=== PATIENT | male | born 1995 | race Caucasian/White ===

== ENCOUNTER 2018-02-13 17:15 | Inpatient (IN) | payer BC, OTHER ==
[~2018-02-13] VITALS: Ht 195.6 cm; Wt 88.5 kg
[2018-02-13 21:00] VITALS: BP 138/87
[2018-02-13] MEDS ORDERED: THIAMINE HCL 200 MG/2 ML VIAL IM ONE (21:00)
[2018-02-13] MEDS ORDERED: ACETAMINOPHEN 325 MG TABLET PO PRN (21:00)
[2018-02-13] MEDS ORDERED: ONDANSETRON 4 MG/2 ML VIAL IM PRN (21:00)
[2018-02-13] MEDS ORDERED: LORAZEPAM 2 MG/1 ML VIAL IM PRN (21:00)
[2018-02-13] MEDS ORDERED: LOPERAMIDE HCL 2 MG CAPSULE PO PRN ×2 (21:00)
[2018-02-13] MEDS ORDERED: CLONIDINE HCL 0.1 MG TABLET PO PRN (21:00)
[2018-02-13] MEDS ORDERED: LORAZEPAM 1 MG TABLET PO PRN ×2 (21:00)
[2018-02-13] MEDS ORDERED: ONDANSETRON ODT 4 MG TAB.RAPDIS SL PRN (21:00)
[2018-02-13] MEDS ORDERED: MAGNESIUM HYDROXIDE 30 ML LIQUID UDC PO PRN (21:00)
[2018-02-13] MEDS ORDERED: DICYCLOMINE HCL 20 MG TABLET PO PRN (21:00)
[2018-02-13] MEDS ORDERED: MIRALAX 17 GM POWD.PACK PO PRN (21:00)
--- NOTE | 2018-02-13 21:00 | NUR ---
Pre-admission Assessment Patient is a 22-year old, male, seen at intake, AAOx4 and with no SOB noted. Patient also noted to be tense. Patient verbalized that he is still intoxicated from Alcohol but is starting to feel "some symptoms" of withdrawal from Opiates, namely tensed muscle with pain level=4/10, chills, goosebumps, cravings for the substance and sweating . Discussed with patient admission policies of the unit. Patient is coherent and able to respond to questions appropriately. Pt is ambulatory with steady gait. Patient reported he has been drinking Alcohol (Vodka and Whiskey) and using Opiates (Heroin, [place]). Vital signs taken and as follows: YD=299/87, P=85, O2 sat on RA=98%, RR=20, T=98.4. Pt verbalized instructions and teachings regarding disposal of narcotic and other controlled home meds, unit protocols such as taking of vital signs Q4H and handling and disposal of contraband.
[2018-02-13 21:30] VITALS: BP 133/89
[2018-02-13 21:34] LABS: BASOPHILS # (AUTO) 0.1 K/uL (0.0-8.0); BASOPHILS % (AUTO) 0.6 % (0.0-2.0); EOSINOPHILS # (AUTO) 0.1 K/uL (0.0-0.7); EOSINOPHILS % (AUTO) 0.9 % (0.0-7.0); HEMATOCRIT 44.2 % (36.7-47.1); HEMOGLOBIN 14.9 g/dL (12.5-16.3); LYMPHOCYTES % (AUTO) 49.3 % (20.5-51.5); MEAN CORPUSCULAR HEMOGLOBIN 32.3 uug (23.8-33.4); MEAN CORPUSCULAR HGB CONC 34 g/dL (32.5-36.3); MEAN CORPUSCULAR VOLUME 95.8 fL (73.0-96.2); MONOCYTES # (AUTO) 1.6 K/uL (2.0-10.0); MONOCYTES % (AUTO) 9.6 % (0.0-11.0); NEUTROPHILS # (AUTO) 6.4 K/uL (1.8-8.9); NEUTROPHILS % (AUTO) 39.6 % (38.5-71.5); PLATELET COUNT (AUTO) 308 K/uL (152-348); RED BLOOD CELL COUNT(AUTO) 4.61 MIL/uL (4.06-5.63); WHITE BLOOD COUNT (AUTO) 16.2 K/uL (3.6-10.2)
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
[2018-02-13] MEDS: METHOCARBAMOL 750 MG TABLET PO PRN (21:58)
[2018-02-13] MEDS: BUPRENORPHINE HCL 2 MG TAB.SUBL SL PRN (21:58)
--- NOTE | 2018-02-13 21:58 | NUR ---
RN note PRN Subutex and PRN Robaxin Patient with goosebumps, increasing anxiety and chills. COWS=13. Also, patient c/o generalized muscle pain=6/10. Administered Subutex 4 mg SL and Robaxin 750 mg PO PRN. Will reassess.
[2018-02-13 22:11] LABS: *AMPHETAMINE, URINE NEGATIVE (NEGATIVE); *BARBITURATE, URINE NEGATIVE (NEGATIVE); *CANNABINOID, URINE POSITIVE (NEGATIVE); *COCCAINE, URINE NEGATIVE (NEGATIVE); *OPIATE, URINE POSITIVE (NEGATIVE); *PHENCYCLIDINE SCREEN,URINE NEGATIVE (NEGATIVE)
[2018-02-13 22:30] LABS: BILIRUBIN,TOTAL 0.4 mg/dL (0.2-1.0); CREATININE 0.8 mg/dL (0.6-1.3); MAGNESIUM 1.9 mg/dL (1.8-2.4); POTASSIUM 3.5 mmol/L (3.5-5.1); TOTAL PROTEIN, SERUM 7.6 g/dL (6.4-8.2)
[2018-02-13 22:52] LABS: THYROID STIMULATING HORMONE 1.758 mIU/mL (0.358-3.740)
--- NOTE | 2018-02-13 23:00 | NUR ---
RN note reassess Patient verbalized that pain level decreased to 3/10. Patient is now less anxious, more calm, less jittery and with no goosebumps. COWS=8. Will continue to monitor.
[2018-02-14] VITALS (7 sets, daily range): BP systolic 130–162; BP diastolic 68–85
[2018-02-14] MEDS ORDERED: GABA600T2 PO (00:16)
[2018-02-14] MEDS ORDERED: GABAPENTIN 300 MG CAPSULE PO ONE (01:00)
[2018-02-14] MEDS ORDERED: MELO-107 PO (03:03)
[2018-02-14] MEDS: HYDROXYZINE PAMOATE 25 MG CAPSULE PO PRN (04:24)
--- NOTE | 2018-02-14 04:27 | NUR ---
RN note PRN Ativan and PRN Vistaril Pt noted to be anxious, frequently shifts movement on bed, fidgety. Patient verbalized that he is "feeling symptoms from alcohol withdrawal." CIWA=12. Administered Ativan 1 mg PO PRN as ordered. Will reassess. Also, administered Vistaril 25 mg PO PRN as ordered. Will reassess.
--- NOTE | 2018-02-14 05:30 | NUR ---
RN note reassess Patient appears more calm and verbalized feeling less anxious. CIWA=10. Will continue to monitor.
--- NOTE | 2018-02-14 07:20 | NUR ---
Start of shift Pt is 22 y/o male admitted for medically supervised withdrawal of ETOH and Opiates. Pr reports using marijuana too. Last COWS 9, CIWA 10 at 0600. Pt A&O x4. Pt reports anxiety, agitation, nausea, sweats, chills, fine tremors, body shakes, insomnia, body aches, intermittent chest pain #3/10 and poor appetite. Pt did not sleep last night. Pt presents with flat affect and depressed mood. Pt is currently on PRN Subutex and Ativan for withdrawal symptoms. Pt encouraged to participate in group activities, socialize with others and identify positive coping skills to maintain sobriety. Safety measures in place; Bed in lowest position. Side rails up x2. Call light functioning and within reach. All needs attended and met. Will continue to monitor for withdrawal symptoms.
--- NOTE | 2018-02-14 07:26 | NUR ---
End of Shift Patient continues to be hyperverbal and appears flushed. Patient was not able to sleep the whole shift. Per patient, "I just feel hyped up but I feel more calm now though and I might sleep soon." Patient noted to be melancholic and with tremors observed. Patient was educated with relaxation techniques. Fall, universal, seizure and safety prec in place. Call light within reach. Latest COWS=9, CIWA=10. Endorsed to AM shift nurse for continuity of care.
--- NOTE | 2018-02-14 08:10 | NUR ---
COWS 15/CIWA 20- Pt presents with nausea, gross tremors, sweats and sweat on brow, chills, anxiety, irritable, insomnia, intermittent chest pain, generalized body aches, and fatigue. Will administer PRN medications as ordered
[2018-02-14] MEDS: FOLIC ACID 1 MG TABLET PO SCH (08:17)
[2018-02-14] MEDS: THIAMINE HCL 100 MG TABLET PO SCH (08:17)
[2018-02-14] MEDS: IBUPROFEN 600 MG TABLET PO PRN (08:17)
[2018-02-14] MEDS: MULTIVITAMINS,THERAPEUTIC TABLET PO SCH (08:17)
[2018-02-14] MEDS: METHOCARBAMOL 750 MG TABLET PO PRN ×2 (08:17→20:37)
[2018-02-14] MEDS: BUPRENORPHINE HCL 2 MG TAB.SUBL SL PRN (08:18)
--- NOTE | 2018-02-14 08:25 | NUR ---
PRN medications: Subutex 4 mg SL for COWS 15 Ativan 2 mg po for CIWA 20 Motrin 600 mg PO for pain in chest, back, and body #3/10 Robaxin 750 mg por for generalized body aches Zofran 4 ml SL for nausea
--- NOTE | 2018-02-14 08:27 | NUR ---
TB test administered to left forearm
[2018-02-14] MEDS ORDERED: TUBERCULIN,PURIF.PROT.DERIV. 5 TU/0.1 ML TEST ID ONE (09:00)
--- NOTE | 2018-02-14 09:15 | NUR ---
Reassess COWS 12/CIWA 16- Pt reports feeling better after PRN medications. Pt has fine tremors, sweats/chills, moderate anxiety, insomnia, body aches improved, chest pain gone. Pt appetite fair. Reassess Motrin- pt pain 0/10, medication effective Robaxin- Pt reports generalized body aches improved Zofran- pt reports nausea resolved, he is able to eat breakfast Subutex COWS 12 Ativan CIWA 16
--- NOTE | 2018-02-14 09:18 | NUR ---
Reassess Zofran- Pt reports nausea resolved and he was able to eat some breakfast and snacks. medication effective.
[2018-02-14] MEDS ORDERED: 5 DAY TAPER OF LORAZEPAM -SERENITY PROTOCOL PO PRN (10:45)
[2018-02-14] MEDS ORDERED: 5 DAY TAPER BUPRENORPHINE -SERENITY PROTOCOL SL PRN (10:45)
--- NOTE | 2018-02-14 12:12 | NUR ---
COWS 12/CIWA 17- Pt presents gross tremors, flushed face, sweats and sweat on brow, chills, anxiety, disheveled, unshaven, irritable, insomnia, generalized body aches, and fatigue. Pt started on 5 day Subutex and 5 day Ativan taper. Will administer routine and PRN medications as ordered.
[2018-02-14] MEDS: BUPRENORPHINE HCL 2 MG TAB.SUBL SL SCH ×3 (12:25→20:38)
[2018-02-14] MEDS: LORAZEPAM 1 MG TABLET PO SCH ×3 (12:25→20:38)
--- NOTE | 2018-02-14 16:12 | NUR ---
COWS 14/CIWA 15- Pt has gross tremors, flushed face, difficulty concentrating, moderate anxiety, generalized body aches, fatigue, and sweats/chills. Administered routine Subutex and Ativan per taper orders. Pt reports these medications are helping his withdrawal symptoms. Addendum: 02/14/18 at 1647 by Lucía Bedolla RN blood pressure elevated 162/76. Pt denies c/o pain or SOB.
--- NOTE | 2018-02-14 16:51 | NUR ---
PRN Clonodine 0.1 mg po for BP 162/76, HR 67
--- NOTE | 2018-02-14 17:50 | NUR ---
Reassess Clonidine- BP 159/84, HR 67. slightly improved.
--- NOTE | 2018-02-14 18:52 | NUR ---
End of shift Last COWS 14, CIWA 15 at 1600. Pt A&O x4. Today Pt presented with moderate anxiety, flushed face, gross tremors, restlessness, fatigue, agitation, body aches, hyperverbal, difficulty concentrating, insomnia, unshaven, odorous, and intermittent nausea. Today Pt was placed on 5 day Subutex and 5 day Ativan taper (day 1) to manage withdrawal symptoms and he reports it is helping. PRNs given today; Zofran, Robaxin, Motrin, Clonidine, Ativan and Subutex. Pt was encouraged to participate in group activities, socialize with others and identify positive coping skills to maintain sobriety. Pt attended two group therapy sessions today. PO fluids 2631ml, voids X8, BM X2. Safety measures in place; Bed in lowest position. Side rails up x2. Call light functioning and within reach. All needs attended and met. Will continue to monitor for withdrawal symptoms. Endorsed to PM shift.
--- NOTE | 2018-02-14 19:30 | NUR ---
Start of shift note Patient is a 22 year old male admitted for ETOH and Opiate withdrawal. Patient is on 5 day Subutex and 5 day Ativan taper. Patient was given PRN Motrin, Clonidine, Robaxin, Zofran SL , Subutex and Ativan. Last COWS 14 and CIWA 15. Patient alert and oriented x 4. Patient presents with flat affect, unshaven, anxiety, restless, irritable ,agitation, chills, flushed face, sweating, bilateral tremors, stuffy nose, restless legs and muscle aches . Safety measures in place. Call light in reach. Will continue to monitor.
--- NOTE | 2018-02-14 20:00 | NUR ---
COWS and CIWA assessment Patient presents anxiety, restless, irritable ,agitation, chills, flushed face, sweating, bilateral tremors, stuffy nose, restless legs and muscle aches. COWS 15 and CIWA 14.
--- NOTE | 2018-02-14 20:37 | NUR ---
PRN Robaxin administration Patient c/o generalized body aches . Will monitor for effectiveness
--- NOTE | 2018-02-14 21:37 | NUR ---
REBECCA Robaxin administration Patient states Robaxin helpful and effective. Addendum: 02/15/18 at 0429 by ROMAN CHAMORRO LVN re-assessment
--- NOTE | 2018-02-14 21:37 | NUR ---
PRN Robaxin administration patient c/o generalized body aches. Will monitor for effectiveness
[2018-02-15] VITALS: BP 137/71
--- NOTE | 2018-02-15 | NUR ---
COWS and CIWA assessment Patient presents with anxiety, restlessness, flushed face, sweating, irritable , difficulty concentrating and difficulty sleeping. COWS 12 and CIWA 11. Relaxation technique provided. Patient states he wants to go down to smoke.
[2018-02-15] MEDS: diphenhydrAMINE 50 MG CAPSULE PO PRN (00:07)
--- NOTE | 2018-02-15 00:07 | NUR ---
PRN Benadryl administration Patient requests for sleep aid. Will monitor for effectiveness
--- NOTE | 2018-02-15 01:07 | NUR ---
PRN Benadryl re-assessment Patient lying in bed with eyes closed. Respiration even and unlabored. Will continue to monitor.
[2018-02-15 04:00] VITALS: BP 131/77
--- NOTE | 2018-02-15 04:00 | NUR ---
COWS and CIWA deferred Patient lying in bed with eyes closed. Respiration even and unlabored. Will continue to monitor.
--- NOTE | 2018-02-15 07:22 | NUR ---
End of shift note Patient slept 4 hours. Fluid intake 1,850 ml. Voided x 2. No BM. Scheduled medication and taper given as ordered. Patient presented with flat affect, unshaven, anxiety, restless, irritable , agitation, bilateral tremors, stuffy nose, restless legs and muscle aches . PRN Robaxin given and Benadryl given. Patient frequently goes down to smoke. Safety measures in place. Call light in reach. Will continue to monitor . Last COWS 12 ad CIWA 11.
--- NOTE | 2018-02-15 07:30 | NUR ---
Start of shift Pt is 22 y/o male admitted for medically supervised withdrawal of ETOH and Opiates. Pt reports using marijuana too. Last COWS 12, CIWA 11 at 2400. Pt on 5 day Subutex and 5 day Ativan Taper. He reports the regimen is helping him and making him comfortable. Pt A&O x4. Pt reports anxiety, agitation, sweats, chills, fine tremors, insomnia, body aches, flat affect, flushed, unshaven and disheveled. Pt encouraged to participate in group activities, socialize with others and identify positive coping skills to maintain sobriety. All safety measures in place; Bed in lowest position. Side rails up x2. Call light functioning and within reach. All needs attended and met. Will continue to assess for withdrawal symptoms.
[2018-02-15 08:00] VITALS: BP 132/84
--- NOTE | 2018-02-15 08:05 | NUR ---
COWS 12- Pt presents with flushed skin, generalized body aches, back pain, fine tremors, moderate anxiety, irritability, fatigue and sweats. Will administer routine Subutex and Ativan per taper order.
[2018-02-15] MEDS: GABAPENTIN 300 MG CAPSULE PO SCH ×3 (08:30→21:23)
[2018-02-15] MEDS: IBUPROFEN 600 MG TABLET PO PRN (08:30)
[2018-02-15] MEDS: THIAMINE HCL 100 MG TABLET PO SCH (08:30)
[2018-02-15] MEDS: FOLIC ACID 1 MG TABLET PO SCH (08:30)
[2018-02-15] MEDS: MULTIVITAMINS,THERAPEUTIC TABLET PO SCH (08:30)
[2018-02-15] MEDS: METHOCARBAMOL 750 MG TABLET PO PRN ×2 (08:30→21:23)
[2018-02-15] MEDS: LORAZEPAM 1 MG TABLET PO SCH ×3 (08:30→21:23)
[2018-02-15] MEDS: BUPRENORPHINE HCL 2 MG TAB.SUBL SL SCH ×3 (08:31→21:23)
--- NOTE | 2018-02-15 08:32 | NUR ---
PRN Ibuprofen 600 mg po for mouth and back pain #6/10 PRN Robaxin 750 mg po for generalized body aches
--- NOTE | 2018-02-15 09:30 | NUR ---
Reassess Ibuprofen- Pt reports mouth and back pain now #4/10. Medication effective. Reassess Robaxin- Pt reports generalized body ached improved.
[2018-02-15 11:06] LABS: HEPATITIS B SURFACE AG Negative (Negative)
[2018-02-15 12:00] VITALS: BP 151/89
--- NOTE | 2018-02-15 12:03 | NUR ---
COWS 12/ CIWA 12- Pt presents with body aches, moderate anxiety, fine tremors, stuffy nose, flushed face and chest and restless legs. Administer Ativan and Subutex as ordered by taper protocol.
[2018-02-15 16:00] VITALS: BP 150/81
--- NOTE | 2018-02-15 16:12 | NUR ---
COWS 12/ CIWA 12- Pt continues with generalized body aches, anxiety, stuffy nose, flushed face and chest, fine tremors, and restless legs. Administered Ativan and Subutex as ordered by taper protocol.
--- NOTE | 2018-02-15 18:45 | NUR ---
End of shift Last COWS 12, CIWA 12 at 1600. Pt on 5 day Subutex and 5 day Ativan Taper. He reports the regimen is helping him and making him comfortable. PRNs given today; Motrin and Robaxin. Pt reports anxiety, agitation, fatigue, sweats, chills, fine tremors, insomnia, body aches, flat affect, flushed, and he remains unshaven and disheveled. Pt encouraged to participate in group activities, socialize with others and identify positive coping skills to maintain sobriety, PO fluids 2800ml, voids X4, BM X1. All safety measures in place; Bed in lowest position. Side rails up x2. Call light functioning and within reach. All needs attended and met. Will continue to assess for withdrawal symptoms. Endorsed to PM shift.
--- NOTE | 2018-02-15 19:15 | NUR ---
Start of Shift note: Patient is a 22 y.o male admitted on 02/13/18 for medically supervised withdrawal from ETOH, Heroin & [place] use. Patient also reported using Marijuana. He is alert & oriented x4. He appears with a flushed face, anxious and agitated mood. He presented with restlessness, myalgia, sweating, & fine tremors. He reported mild auditory hallucinations yet denies visual and tactile. He is on day #2 of his 5-day Ativan & 5-day Subutex taper and tolerating well. Last COWS 12 CIWA 12 @ 1600. Pt received PRn Motrin & Robaxin during day shift. Educated patient current plan of care for the night and medication regimen including frequent rounding and vitals signs check every 4 hours. Pt verbalized understanding. Fall & seizure precautions observed. Bed locked in lowest position, both side rails up for safety and call light within pts reach. Will continue to monitor patient.
[2018-02-15 20:00] VITALS: BP 153/91
--- NOTE | 2018-02-15 20:00 | NUR ---
COWS/CIWA Assessment He presented with a flushed face, anxious and agitated mood. He presented with restlessness, myalgia, sweating, & fine tremors. He reported mild auditory hallucinations yet denies visual and tactile. COWS 15 CIWA 16.
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
--- NOTE | 2018-02-15 21:00 | NUR ---
SIDERAILS REFUSED Pt refused to raise both side rails. Explained to patient risks and benfits of siderails and importance of siderails for safety but still refused. Will continue to monitor patient. Addendum: 02/16/18 at 0313 by SAVITA ALEGRIA RN DISREGARD NOTED: WRONG PATIENT
--- NOTE | 2018-02-15 21:23 | NUR ---
PRN Robaxin Patient is noted to be restless & complained of 4/10 body and joint aches. PRN Robaxin administered as ordered. Will monitor for effectiveness of medication.
--- NOTE | 2018-02-15 22:23 | NUR ---
PRN Reassessment patient verbalized relief from body and joint aches. Patient noted ambulating in the hallway. No facial grimacing noted. Will continue to monitor patient.
[2018-02-16] VITALS: BP 128/63
--- NOTE | 2018-02-16 | NUR ---
COWS/CIWA Assessment Pt continues to present with a flushed face, he is noted to be less anxious and agitated. He presented with restlessness, sweating, & fine tremors. Denies pain/discomfort 10 CIWA 11.
[2018-02-16 04:00] VITALS: BP 135/76
--- NOTE | 2018-02-16 07:09 | NUR ---
End of Shift Note: Patient is alert & oriented x4. He presented with withdrawal symptoms such as anxiety, agitation, restlessness, myalgia, sweating, & fine tremors. He also reported some mild auditory hallucinations, per pt he was hearing whispers. He continues on his 5-day Ativan and 5-day Subutex taper and tolerating well. Last COWS 10 CIWA 11. Pt reported that medication is effective in decreasing symptoms of withdrawal. Pt also received PRN Robaxin and was effective. Encourage pt to increase fluid intake for hydration. Educated pt importance attending groups to learn new coping skills to prevent relapse. Patient is stable and vitals WNL. Pt slept for a total of 6 hours. Fluid intake:1552ml, Voided 3x with no BM noted. All due meds given and all needs attended. All safety measures in place; Bed in lowest position. Side rails up x2. Call light functioning and within reach. Will continue to closely monitor patient for s/s of withdrawal. Will endorse all pertinent information to AM nurse.
[2018-02-16 08:00] VITALS: BP 136/79
--- NOTE | 2018-02-16 08:17 | NUR ---
START OF SHIFT: Received Pt A/O X 4. He presents with anxious mood and congruent affect. He reports anxiety,irritability,agitation and restlessness with intermittent sweats and chills. COWS 11 CIWA 7. Detox taper i n progress to manage s/s of w/d. He was encouraged to attend group today. Encouraged increased fluids to assist in facilitating detox process. Will continue to monitor and offer support.
[2018-02-16 08:31] LABS: BILIRUBIN,DIRECT 0.1 mg/dL (0.0-0.2); BILIRUBIN,TOTAL 0.8 mg/dL (0.2-1.0); CREATININE 0.9 mg/dL (0.6-1.3); POTASSIUM 4.1 mmol/L (3.5-5.1); TOTAL PROTEIN, SERUM 7.6 g/dL (6.4-8.2)
[2018-02-16 08:40] LABS: BASOPHILS # (AUTO) 0.2 K/uL (0.0-8.0); BASOPHILS % (AUTO) 1.1 % (0.0-2.0); EOSINOPHILS # (AUTO) 0.7 K/uL (0.0-0.7); HEMATOCRIT 46.8 % (36.7-47.1); HEMOGLOBIN 15.4 g/dL (12.5-16.3); LYMPHOCYTES # (AUTO) 5.3 K/uL (20.0-40.0); LYMPHOCYTES % (AUTO) 36.8 % (20.5-51.5); MEAN CORPUSCULAR HEMOGLOBIN 32.2 uug (23.8-33.4); MEAN CORPUSCULAR HGB CONC 33 g/dL (32.5-36.3); MEAN CORPUSCULAR VOLUME 97.7 fL (73.0-96.2); MONOCYTES # (AUTO) 2.1 K/uL (2.0-10.0); MONOCYTES % (AUTO) 14.4 % (0.0-11.0); NEUTROPHILS # (AUTO) 6.1 K/uL (1.8-8.9); NEUTROPHILS % (AUTO) 42.7 % (38.5-71.5); PLATELET COUNT (AUTO) 285 K/uL (152-348); RED BLOOD CELL COUNT(AUTO) 4.79 MIL/uL (4.06-5.63); WHITE BLOOD COUNT (AUTO) 14.4 K/uL (3.6-10.2)
[2018-02-16] MEDS ORDERED: BUPRENORPHINE HCL 2 MG TAB.SUBL SL SCH (09:00)
[2018-02-16] MEDS: MULTIVITAMINS,THERAPEUTIC TABLET PO SCH (09:07)
[2018-02-16] MEDS: THIAMINE HCL 100 MG TABLET PO SCH (09:08)
[2018-02-16] MEDS: GABAPENTIN 300 MG CAPSULE PO SCH ×3 (09:08→20:46)
[2018-02-16] MEDS: LORAZEPAM 1 MG TABLET PO SCH ×4 (09:08→20:48)
[2018-02-16] MEDS: FOLIC ACID 1 MG TABLET PO SCH (09:09)
[2018-02-16 12:00] VITALS: BP 148/71
--- NOTE | 2018-02-16 12:10 | NUR ---
COWS 8 CIWA 9 . He c/o anxiety,restlessness body aches and irritability.
[2018-02-16] MEDS: BUPRENORPHINE HCL 2 MG TAB.SUBL SL SCH ×2 (14:32→20:49)
[2018-02-16 16:00] VITALS: BP 159/89
--- NOTE | 2018-02-16 19:07 | NUR ---
END OF SHIFT: Pt continues on Ativan/Subutex taper to manage s/s of w/d which include anxiety,restlessness,body aches,sweats and chills. COWS 8 CIWA 9 He states the detox meds are effective. He attended groups,interacted with peers and was compliant with increased fluids. Will pass shift report to oncoming night nurse.
--- NOTE | 2018-02-16 19:30 | NUR ---
Start of shift note Received report from day shift Nurse. Patient is a 22 year old male admitted for Alcohol and Opiate withdrawal. Patient is on 3rd day of his 5 day Ativan and 5 day Subutex taper. Patient did not require PRN medication. Last COWS 8 and CIWA9. Patient alert and oriented x 4. Patient presents with flat affect,unshaven, flushed face, hyperverbal, anxious, restless, sweating, chills and c/o back and foot pain. Safety measures in place. Call light in reach. Will continue to monitor.
[2018-02-16 20:00] VITALS: BP 151/83
--- NOTE | 2018-02-16 20:00 | NUR ---
COWS and CIWA assessment Patient presents with flat affect,unshaven, flushed face, hyperverbal, anxious, restless, sweating, chills and c/o back and foot pain. COWS 11 and CIWA 11.
[2018-02-16] MEDS: METHOCARBAMOL 750 MG TABLET PO PRN (20:48)
--- NOTE | 2018-02-16 20:48 | NUR ---
PRN Robaxin administration Patient c/o back and foot pain. Will monitor for effectiveness
--- NOTE | 2018-02-16 21:48 | NUR ---
PRN Robaxin re-assessment Patient states Robaxin is helpful and effective. Will continue to monitor
[2018-02-16] MEDS: diphenhydrAMINE 50 MG CAPSULE PO PRN (22:49)
--- NOTE | 2018-02-16 22:49 | NUR ---
PRN Benadryl administration Patient requests for sleep aid. Will monitor for effectiveness
--- NOTE | 2018-02-16 23:49 | NUR ---
PRN Benadryl re-assessment Patient lying in bed with eyes closed. Respiration even and unlabored. Will continue to monitor
[2018-02-17] VITALS: BP 140/62
--- NOTE | 2018-02-17 | NUR ---
COWS and CIWA assessment Patient woke up and wants to go down to smoke. Patient anxious, restless , face flushed and sweating. COWS 9 and CIWA 8. Relaxation technique provided.
[2018-02-17 04:00] VITALS: BP_SYST 115; BP_SYST 135; BP_DIAS 74
--- NOTE | 2018-02-17 07:22 | NUR ---
End of shift note Patient slept 4 hours. Fluid intake 2,565 ml. Voided x 5. No BM .Monitored Patient throughout shift. Patient frequently goes down to smoke. Scheduled medication and taper given as ordered, tolerated well and no adverse reaction. Patient presented with flat affect,unshaven, flushed face, hyperverbal, anxious, restless, sweating, chills and c/o back and foot pain. PRN Robaxin given and Benadryl for sleep. Safety measures in place. Call light in reach. Will continue to monitor. Last COWS 9 and CIWA 8.
[2018-02-17 08:00] VITALS: BP 131/82
--- NOTE | 2018-02-17 08:15 | NUR ---
START OF SHIFT: Received Pt A/O X 4. He presents with anxious mood and congruent affect. He reports anxiety agitation and restlessness with body aches and irritability. COWS 8 CIWA 10. Ativan/Subutex taper in progress to manage s/s of w/d. He was encouraged to attend group today. Encouraged increased fluids to assist in facilitating detox process. Will continue to monitor and offer support. Addendum: 02/17/18 at 1059 by AMBER PETIT RN Valium/Subutex taper in progress.
[2018-02-17] MEDS: BUPRENORPHINE HCL 2 MG TAB.SUBL SL SCH ×3 (08:37→20:17)
[2018-02-17] MEDS: FOLIC ACID 1 MG TABLET PO SCH (08:37)
[2018-02-17] MEDS: GABAPENTIN 300 MG CAPSULE PO SCH ×3 (08:37→20:16)
[2018-02-17] MEDS: LORAZEPAM 1 MG TABLET PO SCH ×3 (08:37→20:17)
[2018-02-17] MEDS: MULTIVITAMINS,THERAPEUTIC TABLET PO SCH (08:37)
[2018-02-17] MEDS: THIAMINE HCL 100 MG TABLET PO SCH (08:37)
[2018-02-17 12:00] VITALS: BP 142/67
--- NOTE | 2018-02-17 12:07 | NUR ---
COWS 10 CIWA 10 He is fidgety and reports anxiety,irritability,restlessness,body aches and irritability.
[2018-02-17 16:00] VITALS: BP 141/70
[2018-02-17] MEDS: METHOCARBAMOL 750 MG TABLET PO PRN (16:37)
[2018-02-17] MEDS: IBUPROFEN 600 MG TABLET PO PRN ×2 (16:37→23:44)
--- NOTE | 2018-02-17 16:40 | NUR ---
Pt c/o body aches and muscle spasms. PRN Robaxin and PRN Motrin given. Will monitor effectiveness.
--- NOTE | 2018-02-17 17:40 | NUR ---
Pt states the Robaxin and Motrin were effective.
--- NOTE | 2018-02-17 19:21 | NUR ---
END OF SHIFT: Pt continues on Ativan/Subutex taper to manage s/s of w/d which include anxiety,restlessness,body aches. COWS 10 CIWA 10.PRN Motrin and Robaxin given for body aches and effective. He attended groups,interacted with peers and was compliant with increased fluids. Will pass shift report to oncoming night nurse.
--- NOTE | 2018-02-17 19:30 | NUR ---
Start of shift note Received report from day shift Nurse. Patient is a 22 year old male admitted for ETOH/Opiate withdrawal. Patient continue on Subutex and Ativan taper. Patient was given PRN Motrin and Robaxin. Last COWS 10 and CIWA 10. Patient alert and oriented x 4. Patient presents with flat affect, eye avoidant, unshaven, face flushed, sweating, anxiety, restless, difficulty concentrating , easily gets distracted, guarded and back pain. Safety measures in place. Call light in reach. Will continue to monitor
[2018-02-17 20:00] VITALS: BP 140/92
--- NOTE | 2018-02-17 20:00 | NUR ---
COWS and CIWA assessment Patient presents with flat affect, eye avoidant, unshaven, face flushed, sweating, anxiety, restless, difficulty concentrating , easily gets distracted, guarded and back pain. COWS 10 and CIWA 9.
--- NOTE | 2018-02-17 20:28 | NUR ---
PRN Tylenol administration Patient c/o back pain. Will monitor for effectiveness
--- NOTE | 2018-02-17 21:28 | NUR ---
PRN Tylenol re-assessment Patient states Tylenol helpful and effective. Back pain is tolerable at this time.
[2018-02-17] MEDS: diphenhydrAMINE 50 MG CAPSULE PO PRN (22:26)
[2018-02-17] MEDS: MAG HYDROX/AL HYDROX/SIMETH 30 ML LIQUID UDC PO PRN (22:26)
--- NOTE | 2018-02-17 22:26 | NUR ---
PRN Mylanta and Benadryl administration Patient c/o heartburn and requests for sleep aid. Will monitor for effectiveness
--- NOTE | 2018-02-17 23:26 | NUR ---
REBECCA Patton re-assessment Patient states he feels much better. Heartburn ceased.
--- NOTE | 2018-02-17 23:44 | NUR ---
PRN Motrin administration Patient c/o back pain. Will monitor for effectiveness
[2018-02-18] VITALS: BP 138/84
--- NOTE | 2018-02-18 | NUR ---
COWS and CIWA assessment Patient presents with anxiety, restlessness , hot and cold sweats and back pain. COWS 8 and CIWA 7.
--- NOTE | 2018-02-18 00:44 | NUR ---
PRN Motrin re-assessment Patient lying in bed with eyes closed. Respiration even and unlabored. No facial grimacing. Will continue to monitor
[2018-02-18 04:00] VITALS: BP 135/82
--- NOTE | 2018-02-18 04:00 | NUR ---
COWS and CIWA deferred Patient lying in bed with eyes closed. Respiration even and unlabored. Will continue to monitor
--- NOTE | 2018-02-18 07:19 | NUR ---
End of shift note Patient slept 6 hours. Fluid intake 2,447 ml. Voided x 7 . No BM. Monitored patient throughout shift. Patient presented with flat affect, eye avoidant, unshaven, face flushed, sweating, anxiety, restless, difficulty concentrating , easily gets distracted, guarded and back pain. Patient was given PRN Tylenol, effective. At 2226, Patient c/o heartburn and requests for sleep. PRN Mylanta given and Benadryl. At 2344, patient c/o back pain. PRN Motrin given. Safety measures in place. Call light in reach. Will continue to monitor. Last COWS 8 and CIWA 7.
--- NOTE | 2018-02-18 07:30 | NUR ---
Start of Shift Plastics Bench Mechanic received report on 22 year old male admitted to [facility] on 02/13/18 for medical management of ETOH and Opiate withdrawals. Pt endorses NKA, full code and regular diet. Pt reports the only chronic PMH of Hepatitis C. Pt does not endorse any PPH. Pt to complete his 5 day Ativan and Subutex tapers. Last CIWA 7 and COWS 8, per NOC report. Pt was administered PRN Tylenol(pain), Mylanta(heartburn), Benadryl(Insomnia) and Motrin(pain), per report. Plastics Bench Mechanic encounters pt in pts room, resting with eyes closed, even and unlabored respiration noted. Bed in low position with wheels locked and side rails up x2. Will continue to monitor, support and encourage according to plan of care.
[2018-02-18 08:13] VITALS: BP 114/51
[2018-02-18] MEDS ORDERED: BUPRENORPHINE HCL 2 MG TAB.SUBL SL SCH (09:00)
[2018-02-18] MEDS: THIAMINE HCL 100 MG TABLET PO SCH (09:15)
[2018-02-18] MEDS: FOLIC ACID 1 MG TABLET PO SCH (09:15)
[2018-02-18] MEDS: LORAZEPAM 1 MG TABLET PO SCH ×2 (09:15→20:08)
[2018-02-18] MEDS: MULTIVITAMINS,THERAPEUTIC TABLET PO SCH (09:15)
[2018-02-18] MEDS: GABAPENTIN 300 MG CAPSULE PO SCH ×3 (09:15→20:07)
--- NOTE | 2018-02-18 09:30 | NUR ---
CIWA 8/COWS 8 Pt is anxious and restless, constantly shifting positions, poor concentration, jumping from task to task. Pt with moist skin, but has been exercising. Will continue to monitor, support and encourage according to plan of care.
[2018-02-18 12:00] VITALS: BP 126/69
--- NOTE | 2018-02-18 12:00 | NUR ---
CIWA 9/COWS 10 Pt is diaphoretic, anxious and restless. Pt with pressured speech and hyper-activity. Will continue to monitor, support and encourage according to plan of care.
[2018-02-18 16:30] VITALS: BP 146/66
--- NOTE | 2018-02-18 16:30 | NUR ---
CIWA 10/COWS 10 Pt is anxious and restless, irritable and labile. Complaints of nausea and chills. Will continue to monitor, support and encourage according to plan of care.
[2018-02-18] MEDS: QUETIAPINE FUMARATE 25 MG TABLET PO SCH (17:48)
--- NOTE | 2018-02-18 19:01 | NUR ---
End of Shift [employer] Service Technician provided report on 22 year old male admitted to [facility] on 02/13/18 for medical management of ETOH and Opiate withdrawals. Pt endorses NKA, full code and regular diet. Pt reports the only chronic PMH of Hepatitis C. Pt does not endorse any PPH. Pt has completed his Subutex taper today and will complete the Ativan taper this evening. Last CIWA 10 and COWS 10, recorded at 1630. Pt not administered any PRN medication by [facility] under[facility]. Pt is A/O x4 and makes needs known. Pt with a linear thought process and clear. Calm and cooperative, anxious and restless with a flat affect and depressed mood. Pt is social and visible on the unit. Pt with pressured speech, hyper-active and has poor concentration and short attention span. Bed in low position with wheels locked and side rails up x2.
[2018-02-18 20:00] VITALS: BP 131/72
--- NOTE | 2018-02-18 20:00 | NUR ---
Start of Shift Note Received a 22 y/o male px, admitted for medically supervised withdrawal from ETOH and Opiates. Px also smokes marijuana. He was placed on 5 day Ativan taper and 5 day Subutex taper that started 02/14/2018. Last reported COWS 10 and CIWA 10 by AM shift nurse. During the rounds at 1999, px is awake inside his room standing. Px appears anxious with flushed face. He stated that his anxiety is 7/10, had sweats at night and body pains of 6/10. Px is requesting for Benadryl tonight. Bilateral hand tremors noted. Bed on lowest position and call light within reach. Well continue to monitor.
--- NOTE | 2018-02-18 20:00 | NUR ---
Side rails refused Px refused to put side rails on head part. He stated that he is uncomfortable if they are up.
--- NOTE | 2018-02-18 20:00 | NUR ---
COWS 12 and CIWA 13 Px appears anxious with flushed face. He stated that his anxiety is 7/10, had sweats at night and body pains of 6/10. Bilateral hand tremors noted. Well continue to monitor.
[2018-02-18] MEDS: METHOCARBAMOL 750 MG TABLET PO PRN (20:08)
--- NOTE | 2018-02-18 20:08 | NUR ---
PRN Robaxin Px received Robaxin 750 mg PO for generalized body aches of 6/10. To reassess after an hour.
--- NOTE | 2018-02-18 21:10 | NUR ---
Reassessment of body aches Px stated that his pain improved from 6/10 to 2-3/10
[2018-02-18] MEDS: diphenhydrAMINE 50 MG CAPSULE PO PRN (22:02)
--- NOTE | 2018-02-18 22:03 | NUR ---
PRN Benadryl Px received Benadryl 50 mg PO for insomnia.
[2018-02-19] VITALS: BP 122/70
--- NOTE | 2018-02-19 | NUR ---
COWS and CIWA deferred COWS and CIWA deferred due to the px is asleep, to assess if the px is awake per doctor's order. We'll continue to monitor.
[2018-02-19 04:00] VITALS: BP 118/70
[2018-02-19 07:04] LABS: BASOPHILS # (AUTO) 0.1 K/uL (0.0-8.0); BASOPHILS % (AUTO) 0.6 % (0.0-2.0); EOSINOPHILS # (AUTO) 0.6 K/uL (0.0-0.7); EOSINOPHILS % (AUTO) 5.4 % (0.0-7.0); HEMATOCRIT 46.4 % (36.7-47.1); HEMOGLOBIN 15.5 g/dL (12.5-16.3); LYMPHOCYTES # (AUTO) 5.1 K/uL (20.0-40.0); LYMPHOCYTES % (AUTO) 48.6 % (20.5-51.5); MEAN CORPUSCULAR HEMOGLOBIN 32.3 uug (23.8-33.4); MEAN CORPUSCULAR HGB CONC 33 g/dL (32.5-36.3); MONOCYTES # (AUTO) 1.9 K/uL (2.0-10.0); MONOCYTES % (AUTO) 17.6 % (0.0-11.0); NEUTROPHILS # (AUTO) 2.9 K/uL (1.8-8.9); NEUTROPHILS % (AUTO) 27.8 % (38.5-71.5); PLATELET COUNT (AUTO) 264 K/uL (152-348); RED BLOOD CELL COUNT(AUTO) 4.79 MIL/uL (4.06-5.63); WHITE BLOOD COUNT (AUTO) 10.6 K/uL (3.6-10.2)
--- NOTE | 2018-02-19 07:05 | NUR ---
End of Shift Note During the shift at 2007, px received Robaxin 750 mg PO for generalized body aches, it was effective. At 2201, px received Benadryl 50 mg PO for insomnia. Px oral intake is 900 ml, voided 2x without BM. Px slept for 7 hours. Bed on lowest position and call light within reach. Well continue to monitor.
[2018-02-19 07:23] LABS: BILIRUBIN,TOTAL 0.4 mg/dL (0.2-1.0); CREATININE 0.9 mg/dL (0.6-1.3); MAGNESIUM 1.9 mg/dL (1.8-2.4); POTASSIUM 4.5 mmol/L (3.5-5.1); TOTAL PROTEIN, SERUM 7.3 g/dL (6.4-8.2)
--- NOTE | 2018-02-19 07:30 | NUR ---
START OF SHIFT Pt 22 y/o male admitted for etoh and opiate withdrawal. Received in room on with eyes closed resting. Alert and oriented to name, place, and time. Perrla. Skin warm and moist to touch. Respirations even and unlabored. Bilateral hand tremors noted. Appears disheveled and unkempt. Empty drink bottles scattered throughout the room. Empty drink bottles found on pt's bed as well. Dirt under fingernails noted. Encouraged to maintain hygiene. It was reported that pt slept for 7 hours last night. Last cows=12 ciwa=13 @1999. It was reported that pt received robaxin prn per MD order for generalized body aches and benadryl po prn per MD order for insomnia last night. Pt completed a 5 day subutex taper and a 5 day ativan taper. Bed on lowest position with side rails x2 up for safety. Call light within reach.
--- NOTE | 2018-02-19 08:00 | NUR ---
COWS CIWA ASSESSMENT cows=10 ciwa=10. Anxious and restless. Bilateral hand tremors noted. Pressured speech. Fidgety. Irritable. Generalized discomfort. Pt states, " I just feel anxious!".
[2018-02-19 08:02] VITALS: BP 92/50
[2018-02-19] MEDS: THIAMINE HCL 100 MG TABLET PO SCH (08:19)
[2018-02-19] MEDS: MULTIVITAMINS,THERAPEUTIC TABLET PO SCH (08:19)
[2018-02-19] MEDS: FOLIC ACID 1 MG TABLET PO SCH (08:19)
[2018-02-19] MEDS: GABAPENTIN 300 MG CAPSULE PO SCH ×3 (08:19→21:20)
[2018-02-19] MEDS: QUETIAPINE FUMARATE 25 MG TABLET PO SCH ×3 (08:19→16:44)
[2018-02-19 09:10] LABS: LYMPHOCYTES % (MANUAL) 50 % (20-40); NEUTROPHILS % (MANUAL) 27 % (42-75)
[2018-02-19 09:11] LABS: EOSINOPHILS % (MANUAL) 7 % (0-8); MONOCYTES % (MANUAL) 16 % (2-10)
[2018-02-19] MEDS: IBUPROFEN 600 MG TABLET PO PRN (11:42)
[2018-02-19] MEDS: METHOCARBAMOL 750 MG TABLET PO PRN ×2 (11:42→21:20)
--- NOTE | 2018-02-19 11:47 | NUR ---
PRN MOTRIN ROBAXIN Complaints of muscle aches 7/10. Robaxin po prn per MD order given and tolerated well. Complaints of right 4th toe pain 7/10. Motrin po prn per MD order given and tolerated well.
[2018-02-19 12:00] VITALS: BP 124/48
--- NOTE | 2018-02-19 12:00 | NUR ---
COWS CIWA ASSESSMENT cows=8 ciwa=8. Irritable. Anxious and restless. Fidgety. Complaints of generalized discomfort. Complaints of body aches and pain. Pressured speech. Bilateral hand tremors.
[2018-02-19] MEDS ORDERED: CLON0.1T14 PO (13:18)
[2018-02-19] MEDS ORDERED: HYDR-3895 PO (13:18)
[2018-02-19] MEDS ORDERED: DIPH50CA37 PO (13:18)
[2018-02-19] MEDS ORDERED: QUET25TA PO (13:18)
[2018-02-19] MEDS ORDERED: MULT-24 PO (13:18)
[2018-02-19] MEDS ORDERED: METH-406 PO (13:18)
--- NOTE | 2018-02-19 15:11 | NUR ---
PRN MARCIO ENAMORADO States muscle aches 4/10. States right toe pain 4/10.
[2018-02-19 16:00] VITALS: BP 107/65
--- NOTE | 2018-02-19 18:45 | NUR ---
END OF SHIFT Pt 22 y/o male admitted for etoh and opiate withdrawal. Alert and oriented to name, place, and time. Perrla. Skin warm and moist to touch. Respirations even and unlabored. Bilateral hand tremors. Disheveled and unkempt. Anxious and restless. Irritable. Fidgety. Generalized discomfort. Empty drink bottles scattered throughout the room. Encouraged to maintain hygiene. Isolative to room with minimal peer interaction. Low motivation for self care. Did not attend group activity. Was seen by MD today. Pt completed a 5 day ativan and 5 day Subutex taper. Last cows= 8 ciwa =8 @1600. Bed on lowest position with side rails x2 up for safety. Call light within reach. Pt is scheduled to be discharged tomorrow.
--- NOTE | 2018-02-19 19:55 | NUR ---
Start of Shift Note Received a 22 y/o male px, admitted for medically supervised withdrawal from ETOH and Opiates. Px also smokes marijuana. He completed 5 day Ativan taper and 5 day Subutex taper that started 02/14/2018. He is to be D/C tomorrow, 02/20/2018. Last reported COWS 8 and CIWA 8 by AM shift nurse. During the rounds at 1955, rayna is awake inside his room standing. Px appears anxious with flushed face. He stated that his anxiety is 6/10, had sweats at night and body pains of 5/10. Px is requesting his night medications to be given at 9PM. Bilateral hand tremors noted. Bed on lowest position and call light within reach. Well continue to monitor.
[2018-02-19 20:00] VITALS: BP 126/71
--- NOTE | 2018-02-19 20:00 | NUR ---
COWS 9 and CIWA 12 Px appears anxious with flushed face. He stated that his anxiety is 6/10, had sweats at night and body pains of 5/10. Bilateral hand tremors noted. HI= 83. Will continue to monitor
[2018-02-19] MEDS: HYDROXYZINE PAMOATE 25 MG CAPSULE PO PRN (21:20)
[2018-02-19] MEDS: diphenhydrAMINE 50 MG CAPSULE PO PRN (21:20)
[2018-02-19] MEDS: MAG HYDROX/AL HYDROX/SIMETH 30 ML LIQUID UDC PO PRN (22:56)
[2018-02-20] VITALS: BP 122/71
[2018-02-20 04:00] VITALS: BP 114/71
--- NOTE | 2018-02-20 07:05 | NUR ---
End of Shift Note Px is to be D/C today, 02/20/2018. During the shift at 0, px received Robaxin 750 mg PO for generalized body aches, Vistaril 25 mg PO for anxiety, and Benadryl 50 mg PO for insomnia. They were effective. At 2256, px received Maalox 30 ml PO for heart bennett. It was effective. Px oral intake is 1000 ml, voided 3x and 3x BM. Px slept for 7 hours. Bed on lowest position and call light within reach. Well continue to monitor. Px endorsed to AM shift nurse.
--- NOTE | 2018-02-20 07:30 | NUR ---
START OF SHIFT Pt 22 y/o male admitted for etoh and opiate withdrawal. Pt received in room awake watching television. Alert and oriented to name, place, and time. Perrla. Skin warm and moist to touch. Respirations even and unlabored. Appears disheveled. Hair uncombed. Encouraged to maintain hygiene. It was reported that pt slept for 7 hours last night. Pt completed a 5 day subutex taper and a 5 day ativan taper. Last cows=9 ciwa=12 reported at 0000. Bed on lowest position with side rails x2 up for safety. Call light within reach. Pt is scheduled to be discharged today.
[2018-02-20 08:00] VITALS: BP 130/60
--- NOTE | 2018-02-20 08:00 | NUR ---
COWS CIWA ASSESSMENT cows=6 ciwa= 7. Anxious and restless. Irritable. Complaints of some intermittent perspiration.
[2018-02-20] MEDS: FOLIC ACID 1 MG TABLET PO SCH (08:15)
[2018-02-20] MEDS: METHOCARBAMOL 750 MG TABLET PO PRN (08:15)
[2018-02-20] MEDS: GABAPENTIN 300 MG CAPSULE PO SCH (08:15)
[2018-02-20] MEDS: THIAMINE HCL 100 MG TABLET PO SCH (08:15)
[2018-02-20] MEDS: MULTIVITAMINS,THERAPEUTIC TABLET PO SCH (08:15)
[2018-02-20] MEDS: HYDROXYZINE PAMOATE 25 MG CAPSULE PO PRN (08:15)
[2018-02-20] MEDS: QUETIAPINE FUMARATE 25 MG TABLET PO SCH (08:15)
--- NOTE | 2018-02-20 08:17 | NUR ---
PRN ROBAXIN VISTARIL Complaints of body aches 12/07. Robaxin po prn per MD order given and tolerated well. States feels anxious. Restless. Vistaril po prn per MD order given and tolerated well.
--- NOTE | 2018-02-20 09:17 | NUR ---
PRN ROBAXIN VISTARIL LUCILLE Pt states body aches 4/10. Also stated medication effective and feels less anxious.
--- NOTE | 2018-02-20 09:32 | NUR ---
DISCHARGE Pt 22 y/o male admitted for etoh and opiate withdrawal. Alert and oriented to name, place, and time. Perrla. Skin warm and dry to touch. Respirations even and unlabored. VS wnl. Pt denies any SI/HI. No belongings in cassette. Home medications, belongings in cabinet, prescriptions, and discharge papers packed in pt bag. Pt discharged to [facility] via private transport. Pt excited about discharge. No distress noted.
== END 2018-02-20 09:32 | disposition other institution (70) | DRG 895 ==
LOC: SRC 19:48
PROVIDERS: ADMIT Family Medicine Addiction Medicine; ATTEND Internal Medicine
PROC: HZ2ZZZZ Detoxification Services for Substance Abuse Treatment (ICD-10-PCS; principal; 2018-02-13)
PROC: HZ41ZZZ Group Counseling for Substance Abuse Treatment, Behavioral (ICD-10-PCS; 2018-02-14)
DX: F10.230 Alcohol dependence with withdrawal, uncomplicated (principal); F11.23 Opioid dependence with withdrawal; Y90.6 Blood alcohol level of 120-199 mg/100 ml; Z91.5 Personal history of self-harm; D72.829 Elevated white blood cell count, unspecified; B19.20 Unspecified viral hepatitis C without hepatic coma; F41.9 Anxiety disorder, unspecified; Z90.81 Acquired absence of spleen; F12.10 Cannabis abuse, uncomplicated; F17.210 Nicotine dependence, cigarettes, uncomplicated; F32.9 Major depressive disorder, single episode, unspecified
CPT/HCPCS: 36415; 70030-TC; 80307; 80349; 80361; 83690; 83735; 84443; 85025; 86580; 86592; 86705; 86803; 87340; 87806; A4663; G0480; J3411; Q0162; Q0163